=== PATIENT | female | born 1950 | race Caucasian/White ===

== ENCOUNTER 2021-12-22 10:40 | Emergency (ER) | payer MEDICARE, BC ==
[~2021-12-22] VITALS: Ht 157.5 cm; Wt 89.4 kg
[2021-12-22 10:56] VITALS: BP 115/76
--- NOTE | 2021-12-22 11:02 | NUR ---
PATIENT AMBULATED TO BED 11
--- NOTE | 2021-12-22 11:20 | NUR ---
71/F BIB SELF WITH C/O BILATERAL LOWER LEFT LEG PAIN X3 WEEKS, PT STATES LEFT LE HURTS MORE THAN RLE. BRUISING AND SWELLING NOTED, DENIES INJURY OR TRAUMA. REPORTS TAKING TYLENOL WITH NO RELIEF. BROWN DISCOLORATION, WARMTH AND TENDERNESS NOTED TO LEFT LE. PATIENT REPORTS 10/10, SHARP/CONSTANT, NON-RADIATING PAIN THAT WORSENS WITH AMBULATING OR PALPATION. PT DENIES SOB, CHEST PAIN, DIZZINESS, HEADACHE, FEVER, CHILLS, N/V/D. BED LOCKED IN LOWEST POSITION, SIDE RAILS X 1. MEDHX: DM, HTN, CHOLESTEROL MEDS: METFORMIN, ATORVASTATIN, 81 ASA, CETIRIZINE, TRULICITY, LASIX, GABAPENTIN, LANTUS, LOSARTAN, METOPROLOL, PIOGLITAZONE ALLERGIES: PENICILLINS
--- NOTE | 2021-12-22 11:22 | NUR ---
DR. MARTÍNEZ IS EVALUATING PATIENT AT BEDSIDE
--- NOTE | 2021-12-22 11:50 | NUR ---
US tech at bedside
[2021-12-22 13:07] LABS: ANION GAP 8.5 (8-16); CARBON DIOXIDE 34.9 mmol/L (21-32); CREATININE 1.5 mg/dL (0.6-1.3); POTASSIUM 3.4 mmol/L (3.5-5.1)
[2021-12-22 13:14] LABS: BASOPHILS % (AUTO) 0.6 % (0.0-2.0); EOSINOPHILS # (AUTO) 0.3 K/uL (0-0.4); EOSINOPHILS % (AUTO) 4.9 % (0.0-4.0); HEMATOCRIT 32.6 % (36-48); HEMOGLOBIN 10.6 g/dL (12.0-16.0); LYMPHOCYTES # (AUTO) 1.6 K/uL (2.5-16.5); LYMPHOCYTES % (AUTO) 26.9 % (20.5-51.1); MEAN CORPUSCULAR HEMOGLOBIN 28 pg (27-31); MEAN CORPUSCULAR HGB CONC 33 g/dL (33-37); MONOCYTES # (AUTO) 0.7 K/uL (0.8-1.0); MONOCYTES % (AUTO) 12.4 % (1.7-9.3); NEUTROPHILS # (AUTO) 3.2 K/uL (1.8-7.7); NEUTROPHILS % (AUTO) 55.2 % (42.2-75.2); PLATELET COUNT (AUTO) 274 K/uL (140-450); RED BLOOD CELL COUNT(AUTO) 3.79 MIL/uL (4.20-5.40); RED CELL DISTRIBUTION WIDTH 14.7 % (11.6-13.7); WHITE BLOOD COUNT (AUTO) 5.9 K/uL (4.8-10.8)
[2021-12-22] MEDS ORDERED: CLINDAMYCIN 600 MG in DEXTROSE 5% 50 ML IV ONE (13:15)
[2021-12-22 13:43] LABS: PROTHROMBIN TIME 11.6 secs (10.8-13.4)
[2021-12-22] MEDS ORDERED: CLIN300C52 PO (13:59)
--- NOTE | 2021-12-22 14:15 | NUR ---
Lab at bedside for BC draw
[2021-12-22] MEDS ORDERED: CLINDAMYCIN 600 MG/4 ML VIAL ONE (14:24)
[2021-12-22 14:55] VITALS: BP 130/57
--- NOTE | 2021-12-22 14:58 | NUR ---
Patient discharged with v/s stable. Written and verbal after care instructions given and explained for Cellulitis. Patient alert, oriented and verbalized understanding of instructions. Ambulatory with steady gait. All questions addressed prior to discharge. ID band removed. Patient advised to follow up with PMD. Rx of Clindamycin Hcl given. Patient educated on indication of medication including possible reaction and side effects. Opportunity to ask questions provided and answered.
== END 2021-12-22 14:58 | disposition home or self-care (01) ==
LOC: MED 10:40
DX: M79.605 Pain in left leg (principal); E11.9 Type 2 diabetes mellitus without complications; I10 Essential (primary) hypertension; Z79.899 Other long term (current) drug therapy; Z88.0 Allergy status to penicillin
CPT/HCPCS: 36415; 80048; 85025; 85610; 85730; 87040; 93970; 96365; 99284; J3490; Q0092